=== PATIENT | female | born 1995 | race Caucasian/White ===

== ENCOUNTER 2021-01-29 21:52 | Emergency (ER) | payer OTHER, SELFPAY ==
[2021-01-29 21:57] VITALS: BP 104/72; PULSE 77; RESP 18; TEMP 37.1; O2SAT 100
--- NOTE | 2021-01-29 22:25 | ED.SKABFB ---
HPI - Skin/Abscess/Foreign Bdy General Chief complaint: Skin/Abscess/Foreign Body Stated complaint: bleeding skin lesion Time Seen by Provider: 01/29/21 22:02 Source: RN notes reviewed History of Present Illness HPI narrative: Patient presents to emergency department from home for skin wound. Patient states she has had a skin tag on right lower back for the past 2 months she states that this evening it was bleeding and she face of landed on it was and stop the bleeding but again began to bleed after she remove the bandage she is unsure if she scratched it or had any other injury to the lesion she denies any fevers or chills or any other symptoms Related Data Home Medications Medication Instructions Recorded Confirmed No Home Medications 01/29/21 01/29/21 Allergies Allergy/AdvReac Type Severity Reaction Status Date / Time No Known Allergies Allergy Verified 01/29/21 22:00 Review of Systems Review of Systems: Gen.: Denies fevers or chills Abdomen: Denies abdominal pain Neuro: Denies numbness, tingling, weakness Skin: See HPI Endo: Denies DM PMFSH Past Medical History Medical History (Updated 01/29/21 @ 22:26 by Lul Zimmerman DO) Patient denies significant medical history Surgical History Surgical History (Updated 10/16/19 @ 09:05 by Nissa Valerio CMA) [place] teeth removed Family History Family History (Updated 01/11/17 @ 09:12 by DOCTOR UNKNOWN) Grandparent Hypertension Mother Hypertension Social History Social History Smoking status: Never smoker Second hand tobacco smoke exposure: No Alcohol intake: never Exam Narrative: APPEARANCE: No acute distress, nontoxic, resting in bed Eyes: EOMI HEENT: Normocephalic, atraumatic, RESPIRATORY: No respiratory distress MUSCULOSKELETAl: Moves all extremities NEURO: Awake and alert. Following commands, speech normal, no focal deficits SKIN:: Warm, dry. The right lower back has a pedunculated skin lesion that has continuous venous oozing from the superior aspect no surrounding erythema Course Vital Signs Vital signs: Vital Signs Temperature 98.7 F 01/29/21 21:57 Pulse Rate 77 01/29/21 21:57 Respiratory Rate 18 01/29/21 21:57 Blood Pressure 104/72 01/29/21 21:57 Pulse Oximetry 100 01/29/21 21:57 Temperature 98.7 F 01/29/21 21:57 Pulse Rate 77 01/29/21 21:57 Respiratory Rate 18 01/29/21 21:57 Blood Pressure 104/72 01/29/21 21:57 Pulse Oximetry 100 01/29/21 21:57 Discharge Plan Discharge Patient Disposition: Home, Self-Care Condition: Stable Instructions: Antibiotic Form Additional Instructions: Return for any further bleeding from the wound or any other symptoms of concern Prescriptions: No Action No Home Medications RF: 0 Follow-up/Referrals: Yong Alberts MD [Physician] - (Follow-up in 3 to 4 days for further plastic surgery treatment and evaluation for skin tag removal) Angel Kyle DO [Physician] - (Follow-up in 3 to 4 days for further general surgery treatment and evaluation for six skin tag excision) Tamara Saldaña MD [Primary Care Provider] - Time of Disposition: 23:26
== END 2021-01-30 00:26 | disposition home or self-care (01) ==
PROVIDERS: Emergency Provider Emergency Medicine; PCP Student in an Organized Health Care Education/Training Program
DX: L91.8 Other hypertrophic disorders of the skin (principal)
CPT/HCPCS: 10080; 12001; 99282